=== PATIENT | female | born 2000 | race Caucasian/White ===

== ENCOUNTER 2023-08-19 09:39 | Outpatient (AMB) | payer OTHER, SELFPAY ==
--- NOTE | 2023-08-19 11:26 | MHC.OFFWIV ---
Intake Vital Signs 08/19/23 11:39 Height 5 ft 2 in Weight 187 lb BMI 34.2 BP 120/80 Blood Pressure Location Lt brachial Position Sitting Pulse 97 Pulse Source Pulse Oximeter Temp 97.2 F Temp Source Temporal Artery Scan Pulse Oximetry (%) 97 Oxygen Delivery Method Room Air Intake Visit Reasons: EP tonsils/throat pain [id number] Intake Note: pt is here today for tonsils throat pain started saturday Patient Tobacco Use Status: Never used Tobacco Is last menstrual period known: Yes Patient : No Allergies No Known Allergies Allergy (Verified 08/19/23 11:28) Do you need a note to return to daycare/school/sports/work: No HPI HPI Comments History of Present Illness Details Patient presents to the walk-in stay with complaints of sore throat for last 2 days Denies known sick contacts Pain with swallowing Tolerating p.o., denies nausea, vomiting PFSH Social History Patient Tobacco Use Status: Never used Tobacco Patient : No Review of Systems Const All systems reviewed & are unremarkable except as noted in HPI and below Physical Exam Vital Signs: Last Vital Signs Temp 97.2 F 08/19/23 11:39 Pulse 97 08/19/23 11:39 BP 120/80 08/19/23 11:39 Pulse Ox 97 08/19/23 11:39 Oxygen Delivery Method Room Air 08/19/23 11:39 BMI result Body Mass Index 34.2 General: awake, alert, oriented. Answers questions appropriately. Fully engaged in examination. Skin: warm, dry, intact HEENT: TMs intact bilaterally, no redness. Posterior pharynx erythematous with white exudates bilaterally. Moist oral mucosa. Sclera without icterus or injection. Cardiac: External chest normal in appearance. Respiratory: +cough. LSCTAB. Abdomen: without gross distension. Neurological: Oriented to person, place, time and situation. Thought process intact. Psychiatric: Appropriate mood and affect. Good judgment and insight. Results Reviewed Results Reviewed: Rapid strep positive Assessment & Plan Assessment & Plan (1) Strep pharyngitis: Code(s): J02.0 - Streptococcal pharyngitis Plan Patient presented to the walk-in today with complaints of sore throat Rapid strep positive Amoxicillin 500 mg twice daily for 10 days Rest, drink plenty of fluids. Tylenol or Motrin as needed Discussed preventative measures including no sharing of drinks, utensils or kissing. Dispose of tooth brush every 3 days and at completion of the antibiotics. All questions and concerns were answered, patient agrees with plan Follow with primary care or return to the clinic for any new or worsening symptoms Medications: New amoxicillin 500 mg PO BID 10 days 20 caps 0RF Coding Level of Care Code Est Pt Level 4 (77514) Diagnoses Strep pharyngitis J02.0
[2023-08-19 11:39] VITALS: BP 120/80; PULSE 97; TEMP 36.2; O2SAT 97; BMI 34.2
== END 2023-08-19 13:38 | disposition home or self-care (01) ==
PROVIDERS: Visit Provider Registered Nurse Emergency
DX: J02.0 Streptococcal pharyngitis (principal)
CPT/HCPCS: 87880; 99214